=== PATIENT | female | born 1950 | race Caucasian/White ===

== ENCOUNTER 2017-04-16 08:05 | Observation (INO) | payer MEDICARE, OTHER ==
[2017-04-12 11:05] VITALS: BP 133/80
[~2017-04-16] VITALS: Ht 170.2 cm; Wt 75.9 kg
[~2017-04-16 08:05] MED LIST: AMIT10TA PO; ATEN25TA PO; BACITRACIN 50,000 UNIT ONE; BUPIVACAINE/PF-EPI 0.5% 1:200K ONE; THROMBIN 5,000 UNIT VIAL TP ONE
[2017-04-16] MEDS ORDERED: LIDOCAINE 1%, 2ML SQ PRN (09:00)
[2017-04-16] MEDS: LACTATED RINGERS 1,000 ML IV SCH ×2 (09:19→10:45)
[2017-04-16] MEDS ORDERED: FENTANYL PF 250 MCG/5ML ONE (11:27)
[2017-04-16] MEDS ORDERED: MIDAZOLAM 1 MG/ML, 2ML ONE (11:28)
[2017-04-16] MEDS ORDERED: MIDAZOLAM 1 MG/ML, 2ML IV PRN (13:00)
[2017-04-16] MEDS ORDERED: MEPERIDINE/PF 25MG/0.5ML IVPush PRN (13:00)
[2017-04-16] MEDS ORDERED: OXYcodone 5 MG/5 ML ORAL.SOL UDC PO PRN (13:00)
[2017-04-16] MEDS ORDERED: hydrALAzine 20 MG/ML, 1ML IV PRN (13:00)
[2017-04-16] MEDS ORDERED: ALBUTEROL/IPRATROPIUM 2.5MG/0.5MG, 3 ML NPPB PRN (13:00)
[2017-04-16] MEDS ORDERED: ACETAMINOPHEN 325 MG TABLET PO PRN (13:00)
[2017-04-16] MEDS ORDERED: ONDANSETRON 2MG/ML, 2ML IVPush PRN ×2 (13:00→15:00)
[2017-04-16] MEDS ORDERED: LABETALOL 5MG/ML, 20ML IV PRN (13:00)
[2017-04-16] MEDS ORDERED: HYDROmorphone 1 MG/ML, 1ML IV PRN (13:00)
[2017-04-16] MEDS ORDERED: PROMETHAZINE 25 MG/ML, 1ML IV PRN (13:00)
[2017-04-16] MEDS ORDERED: FENTANYL PF 100 MCG/2ML ONE ×2 (14:09→15:09)
[2017-04-16] MEDS ORDERED: ACETAMINOPHEN 650 MG/20.3 ML UDC ONE (14:09)
[2017-04-16] MEDS ORDERED: OXYcodone 5 MG/5 ML ORAL.SOL UDC ONE (14:09)
[2017-04-16] MEDS: FENTANYL PF 100 MCG/2ML IV PRN ×3 (14:13→15:18)
[2017-04-16] MEDS ORDERED: HYDROmorphone PCA 30 MG/30 ML ONE (14:41)
[2017-04-16] MEDS ORDERED: TIZANIDINE 4MG TABLET PO PRN (15:00)
[2017-04-16] MEDS ORDERED: DIPHENHYDRAMINE 50 MG/ML, 1ML IVPush PRN (15:00)
[2017-04-16] MEDS ORDERED: HYDROmorphone PCA 30 MG/30 ML IV PRN (15:00)
[2017-04-16] MEDS ORDERED: DIAZEPAM 5 MG/ML, 2ML IVPush PRN (15:00)
[2017-04-16] MEDS ORDERED: HYDROcodone/APAP 10/325 MG TABLET PO PRN (15:00)
[2017-04-16] MEDS ORDERED: PHARMACY MAY ADJ FOR RENAL FX MC PRN (15:00)
[2017-04-16] MEDS ORDERED: BISACODYL 10 MG SUPP PR PRN (15:00)
[2017-04-16] MEDS ORDERED: DIAZEPAM 5 MG TABLET PO PRN (15:00)
[2017-04-16] MEDS ORDERED: MAGNESIUM HYDROXIDE 8%, 30ML UDC PO PRN (15:00)
[2017-04-16] MEDS ORDERED: morphine SULFATE 10 MG/ML, 1ML IVPush PRN (15:00)
[2017-04-16] MEDS ORDERED: PROMETHAZINE 25 MG/ML, 1ML IM PRN (15:00)
[2017-04-16] MEDS ORDERED: MEPERIDINE/PF 100 MG/ML IM PRN (15:00)
[2017-04-16] MEDS ORDERED: HYDROmorphone 1 MG/ML, 1ML ONE (15:09)
[2017-04-16 15:45] VITALS: BP 132/84
[2017-04-16] MEDS ORDERED: PROPOFOL 10 MG/ML, 50ML ONE (16:24)
[2017-04-16] MEDS ORDERED: DEXAMETHASONE 4 MG/ML, 1ML ONE (16:24)
[2017-04-16] MEDS ORDERED: PHENYLEPHRINE 10 MG/ML ONE (16:24)
[2017-04-16] MEDS ORDERED: PROPOFOL 10 MG/ML, 20ML ONE (16:24)
[2017-04-16] MEDS ORDERED: SUCCINYLCHOLINE 20 MG/ML, 10ML ONE (16:24)
[2017-04-16] MEDS ORDERED: CEFAZOLIN 1,000 MG ONE (16:24)
[2017-04-16] MEDS ORDERED: ONDANSETRON 2MG/ML, 2ML ONE (16:24)
[2017-04-16] MEDS: NS + 20MEQ KCL 1,000 ML IV SCH (18:34)
[2017-04-16 19:27] VITALS: BP 114/76
[2017-04-16] MEDS: CEFAZOLIN PMX 1GM/50ML 50 ML IVPB SCH (19:58)
[2017-04-16] MEDS: SODIUM CHLORIDE FLUSH 10ML SYR IVF SCH (20:16)
[2017-04-16] MEDS ORDERED: AMITRIPTYLINE 10 MG TABLET PO SCH (21:00)
[2017-04-16 23:42] VITALS: BP 109/61
[2017-04-17 03:57] VITALS: BP 120/67
[2017-04-17] MEDS: NS + 20MEQ KCL 1,000 ML IV SCH (04:00)
[2017-04-17] MEDS: CEFAZOLIN PMX 1GM/50ML 50 ML IVPB SCH (04:04)
[2017-04-17] MEDS: OXYcodone/APAP 5/325MG TABLET PO PRN ×2 (04:04→10:08)
[2017-04-17 08:12] VITALS: BP 97/59
[2017-04-17] MEDS ORDERED: SENNA/DOCUSATE TABLET PO SCH (09:00)
[2017-04-17] MEDS ORDERED: ATENOLOL 25 MG TABLET PO SCH (09:00)
[2017-04-17] MEDS: SODIUM CHLORIDE FLUSH 10ML SYR IVF SCH (10:09)
[2017-04-17] MEDS ORDERED: TIZA2TAB PO (10:22)
[2017-04-17] MEDS ORDERED: OXYC-302 PO (10:22)
[2017-04-17] MEDS ORDERED: POLY17PO5 PO (10:23)
== END 2017-04-17 10:54 | disposition home or self-care (01) ==
LOC: OUT 08:05 → ORIP 14:33 → 4NOR 15:32
PROVIDERS: ADMIT Neurological Surgery; ATTEND Neurological Surgery
DX: M50.11 Cervical disc disorder with radiculopathy, high cervical region (principal); M50.121 Cervical disc disorder at C4-C5 level with radiculopathy; I10 Essential (primary) hypertension
CPT/HCPCS: 20936; 22551; 22552; 22853; 36415; 72100; 86850; 86900; 95938; 95941; 96365; 96375; 97116; 97161; 97165; C1713; G0378; J0330; J0690; J1100; J1170; J1200; J2250; J2370; J2405; J2704; J3010; J3480; J3490; J7120